=== PATIENT | male | born 1960 | race Hispanic/Latino ===

== ENCOUNTER 2017-03-11 11:39 | Emergency (ER) | payer SELFPAY ==
[2017-03-11] MEDS ORDERED: KETOROLAC TROMETHAMINE 60 MG/2 ML VIAL ONE (12:30)
[2017-03-11] MEDS ORDERED: ORPHENADRINE CITRATE 30 MG/ML ML ONE (12:30)
[2017-03-11] MEDS ORDERED: DEXAMETHASONE SOD PHOSPHATE 10MG/ML 1ML VIAL ONE (12:30)
== END 2017-03-11 13:17 | disposition home or self-care (01) ==
LOC: EDH 11:39
DX: M54.5 Low back pain (principal); E11.9 Type 2 diabetes mellitus without complications; Z87.891 Personal history of nicotine dependence
CPT/HCPCS: 96372 ×3; 99284; J1100; J1885; J2360

== ENCOUNTER 2017-03-14 07:10 | Emergency (ER) | payer SELFPAY ==
[2017-03-14 07:44] LABS: APPEARANCE,URINE Cloudy (CLEAR); BILIRUBIN,URINE Negative (NEGATIVE); COLOR,URINE Yellow (YELLOW); GLUCOSE, URINE (UA) Negative (NEGATIVE); KETONES,URINE Trace mg/dL (NEGATIVE); LEUKOCYTE ESTERASE ,URINE Trace (NEGATIVE); NITRATE,URINE Negative (NEGATIVE); OCCULT BLOOD,URINE Negative (NEGATIVE); PROTEIN,URINE Negative (NEGATIVE); UROBILINOGEN,URINE 0.2 mg/dL (0.2-1.0)
[2017-03-14 07:46] LABS: BASOPHILS % (AUTO) 0.2 % (0.0-5.0); EOSINOPHILS % (AUTO) 0.4 % (0.0-8.0); HEMATOCRIT 49.6 % (42-54); LYMPHOCYTES % (AUTO) 19.4 % (21.0-51.0); MEAN CORPUSCULAR HEMOGLOBIN 29.7 pg (27.0-33.0); MEAN CORPUSCULAR HGB CONC 32.9 g/dL (32.0-36.0); MEAN CORPUSCULAR VOLUME 90.3 fL (79-99); MONOCYTES % (AUTO) 7.9 % (3.0-13.0); NEUTROPHILS % (AUTO) 72.1 % (40.0-77.0); PLATELET COUNT (AUTO) 247 K/uL (130-400); RED BLOOD CELL COUNT(AUTO) 5.49 MIL/uL (4.50-6.20); RED CELL DISTRIBUTION WIDTH 14.3 % (11.0-15.5); WHITE BLOOD COUNT (AUTO) 22.3 K/uL (4.8-10.8)
[2017-03-14 07:59] LABS: INR 0.89 (0.85-1.15); PARTIAL THROMBOPLASTIN TIME 22.9 SEC (26.3-35.5); PROTHROMBIN TIME 9.4 SEC (9.6-11.6)
[2017-03-14 08:00] LABS: BACTERIA,URINE Rare /HPF (None Seen); SQUAMOUS EPITHELIAL CELL,UR Rare /LPF (0-2); WBC,URINE 0-1 /HPF (0-1)
[2017-03-14] MEDS ORDERED: ONDANSETRON HCL 4 MG/2 ML VIAL ONE ×2 (08:01→10:54)
[2017-03-14] MEDS ORDERED: SODIUM CHLORIDE 0.9% 1000ML 1,000 ML IV ONE (08:01)
[2017-03-14] MEDS ORDERED: FAMOTIDINE/PF 20 MG/2 ML VIAL IV ONE (08:02)
[2017-03-14 08:25] LABS: CARBON DIOXIDE 21 mmol/L (21-32); CHLORIDE 100 mmol/L (101-111); CREATININE 1.7 mg/dL (0.5-1.5); GLOMERULAR FILTR. RATE CALC 44 mL/min (>60); GLUCOSE,RANDOM 154 mg/dL (70-105); POTASSIUM 3.7 mmol/L (3.5-5.1); SODIUM SERUM 137 mmol/L (136-145); UREA NITROGEN, BLOOD 35 mg/dL (7-18)
[2017-03-14 08:37] LABS: ALANINE AMINOTRANSFERASE 41 U/L (12-78); ALBUMIN 4.5 g/dL (3.5-5.0); ASPARTATE AMINOTRANSFERASE 30 U/L (10-37); BILIRUBIN,TOTAL 0.4 mg/dL (0.2-1.0); CREATINE KINASE MB < 0.5 ng/mL (0.5-3.6); CREATINE KINASE, TOTAL 61 U/L (21-232); TOTAL PROTEIN, SERUM 9.4 g/dL (6.0-8.3)
[2017-03-14] MEDS ORDERED: MORPHINE SULFATE 4 MG/1ML SYG ONE (10:54)
[2017-03-14 12:14] LABS: OCCULT BLOOD STOOL SINGLE ONLY NEGATIVE (NEGATIVE)
[2017-03-14] MEDS ORDERED: DICYCLOMINE HCL 20 MG TAB ONE (12:29)
[2017-03-14] MEDS ORDERED: MAG HYDROX/AL HYDROX/SIMETH ES 30 ML SUSP UDCUP ONE (13:17)
== END 2017-03-14 14:34 | disposition home or self-care (01) ==
LOC: EDH 07:10
DX: E86.0 Dehydration (principal); R10.13 Epigastric pain; R19.7 Diarrhea, unspecified; G89.29 Other chronic pain; M54.5 Low back pain; R11.2 Nausea with vomiting, unspecified; E11.9 Type 2 diabetes mellitus without complications
CPT/HCPCS: 36415; 74176; 80053; 81001; 82270; 82550; 82553; 82948; 83690; 84484; 85025; 85610; 85730; 87046; 87177; 87205; 87324; 93005; 96361; 96374; 96375; 96376; 99285; J2270; J2405 ×2; J3490; J7030

== ENCOUNTER 2018-08-26 13:56 | Emergency (ER) | payer SELFPAY | END 2018-08-26 15:11 | disposition home or self-care (01) | LOC: EDH 13:56 | DX: S90.561A Insect bite (nonvenomous), right ankle, initial encounter (principal); E11.9 Type 2 diabetes mellitus without complications; W57.XXXA Bitten or stung by nonvenomous insect and other nonvenomous arthropods, initial encounter; Y93.89 Activity, other specified; Y92.89 Other specified places as the place of occurrence of the external cause; Y99.8 Other external cause status ==

== ENCOUNTER → 2018-09-01 | Outpatient (CLI) | payer OTHER | END | disposition home or self-care (01) | LOC: OIH 16:06 | PROVIDERS: ATTEND Internal Medicine | DX: M54.5 Low back pain (principal); G89.29 Other chronic pain | CPT/HCPCS: 72100 ==

== ENCOUNTER 2018-09-08 18:30 | Emergency (ER) | payer OTHER ==
[2018-09-08] MEDS ORDERED: TETANUS/DIPHTHERIA TOXOID [ADULT] 0.5 ML VIAL IM ONE (19:04)
[2018-09-08] MEDS ORDERED: ACETAMINOPHEN 325 MG TAB ONE (19:04)
== END 2018-09-08 19:51 | disposition home or self-care (01) ==
LOC: EDH 18:30
DX: S00.31XA Abrasion of nose, initial encounter (principal); E11.9 Type 2 diabetes mellitus without complications; W22.8XXA Striking against or struck by other objects, initial encounter; Y93.89 Activity, other specified; Y92.89 Other specified places as the place of occurrence of the external cause; Y99.8 Other external cause status
CPT/HCPCS: 70160; 90471; 90714

== ENCOUNTER 2019-04-17 23:42 | Emergency (ER) | payer MEDICAID, OTHER ==
[2019-04-18] MEDS ORDERED: BENZONATATE 100 MG CAPSULE PO ONE (00:07)
== END 2019-04-18 00:57 | disposition home or self-care (01) ==
LOC: EDH 23:42
DX: J20.9 Acute bronchitis, unspecified (principal); J32.9 Chronic sinusitis, unspecified; E11.9 Type 2 diabetes mellitus without complications
CPT/HCPCS: 71046; 87804

== ENCOUNTER 2020-06-03 19:25 | Emergency (ER) | payer OTHER ==
[2020-06-03] MEDS ORDERED: DIAZEPAM 5 MG TABLET ONE (20:35)
[2020-06-03] MEDS ORDERED: KETOROLAC TROMETHAMINE 60 MG/2 ML VIAL ONE (20:35)
== END 2020-06-03 20:48 | disposition home or self-care (01) ==
LOC: EDH 19:25
DX: M54.5 Low back pain (principal); E11.9 Type 2 diabetes mellitus without complications
CPT/HCPCS: 72100; 96372; 99283; J1885

== ENCOUNTER 2020-10-19 12:43 | Emergency (ER) | payer OTHER ==
[~2020-10-19] VITALS: Ht 167.6 cm; Wt 75.7 kg
[2020-10-19 12:47] VITALS: BP 141/88
[2020-10-19] MEDS ORDERED: KETOROLAC 30MG VIAL (30MG/ML) IM ONE (15:30)
[2020-10-19] MEDS ORDERED: ORPHENADRINE CITRATE 30 MG/ML ML IM ONE (15:30)
[2020-10-19] MEDS ORDERED: LIDOCAINE 5% TOPICAL PATCH TP ONE (15:30)
[2020-10-19] MEDS ORDERED: NAPR-1180 PO (15:54)
[2020-10-19] MEDS ORDERED: CYCL10TA7 PO (15:54)
== END 2020-10-19 16:20 | disposition home or self-care (01) ==
LOC: EDH 12:43
DX: M54.5 Low back pain (principal); G89.29 Other chronic pain; E11.9 Type 2 diabetes mellitus without complications; Z79.1 Long term (current) use of non-steroidal anti-inflammatories (NSAID)
CPT/HCPCS: 96372 ×2; 99284; J1885; J2360

== ENCOUNTER → 2024-10-21 | Outpatient (CLI) | payer OTHER ==
[~2024-10-21] MED LIST: CYCL-309 PO; NAPR-1180 PO
--- NOTE | 2024-10-22 11:10 | HMCIMG ---
EXAMINATION: ULTRASOUND OF THE ABDOMEN (LIMITED) WITH COLOR DOPPLER. CLINICAL HISTORY: Abnormal labs. COMPARISON: None. TECHNIQUE: Real-time grayscale ultrasound images of the abdomen. In addition, color Doppler is medically necessary to perform in order to evaluate vascularity and blood flow. FINDINGS: Liver: Normal in caliber, the right hepatic lobe measures 12.0 cm in the craniocaudal dimension. There is increased echogenicity of the hepatic parenchyma. There is no focal hepatic abnormality or intrahepatic biliary ductal dilatation. There is normal spectral Doppler of the main portal vein. Gallbladder: Post cholecystectomy status. Common bile duct is normal in caliber, measuring 0.40 cm. Pancreas: Normal in caliber and echotexture. No calcification or dilated pancreatic duct. The right kidney is normal in caliber, the right kidney measures 10.6 x 5.6 x 5.6 cm in craniocaudal, AP, and transverse dimensions respectively. There is normal renal cortical thickness, and cortical echogenicity. There is no renal calculus or hydronephrosis. IMPRESSION: Hepatic steatosis. Post cholecystectomy status. /[place]
== END | disposition home or self-care (01) ==
LOC: RAH 09:56
PROVIDERS: ATTEND Internal Medicine
DX: K76.0 Fatty (change of) liver, not elsewhere classified (principal); R79.89 Other specified abnormal findings of blood chemistry; E66.9 Obesity, unspecified; Z90.49 Acquired absence of other specified parts of digestive tract
CPT/HCPCS: 76705

== ENCOUNTER → 2024-12-02 | Outpatient (CLI) | payer OTHER ==
--- NOTE | 2024-12-02 13:15 | NUR ---
MBSS COMPLETED (OUTPATIENT). No aspiration; no penetrations. RECOMMENDATIONS: Regular solids, thin liquids and pills whole with liquids as tolerated COMPENSATORY STRATEGIES: 1. sit upright during oral intake 2. small bites/sips 3. extra dry swallows DIAGNOSTIC FINDINGS: Pt presented with mild oropharyngeal dysphagia; however functional. Dysphagia characterized by decreased oral motor strength, ROM, and coordination; decreased tongue base retraction; decreased hyo-laryngeal elevation/excursion evidenced by decreased A-P bolus propulsion; residue on base of tongue, valleculae, pyriform sinuses and above UES partially cleared with extra dry swallows. No aspiration/no penetrations. [employer] reviewed results and recommendations with patient and provider present at time of visit. [employer] educated patient on risks and consequences of aspiration. Speech therapy not warranted at this time. Mild dysphagia best managed with compensatory strategies. All questions answered. Addendum: 12/03/[address] TRESA CHAVES Amended: Links added.
--- NOTE | 2024-12-03 16:36 | HMCIMG ---
MODIFIED BARIUM SWALLOW W CINE REASON: Dysphagia, unspecified FINDINGS: Fluoroscopic assistance was provided to the speech pathologist while performing examination. For findings and dietary recommendations, refer to speech pathologist's report. FLUORO TIME: 2.5 minutes IMPRESSION: Modified barium swallow as described.
== END | disposition home or self-care (01) ==
LOC: RAH 12:07
PROVIDERS: ATTEND Internal Medicine
DX: C18.3 Malignant neoplasm of hepatic flexure (principal); R13.10 Dysphagia, unspecified; F79 Unspecified intellectual disabilities
CPT/HCPCS: 74230; 92611